=== PATIENT | female | born 1945 | race Caucasian/White ===

== ENCOUNTER → 2016-10-16 | Outpatient (CLI) | payer OTHER, MEDICARE | LOC: BMCIMAGING 08:19 | PROVIDERS: ATTEND Internal Medicine | DX: Z12.31 Encounter for screening mammogram for malignant neoplasm of breast (principal); Z80.3 Family history of malignant neoplasm of breast | CPT/HCPCS: G0202 ==

== ENCOUNTER → 2017-10-25 | Outpatient (CLI) | payer OTHER, MEDICARE | LOC: BMCIMAGING 09:03 | PROVIDERS: ATTEND Internal Medicine | DX: Z12.31 Encounter for screening mammogram for malignant neoplasm of breast (principal); Z80.3 Family history of malignant neoplasm of breast ==

== ENCOUNTER → 2017-11-01 | Outpatient (CLI) | payer OTHER, MEDICARE | LOC: BMCIMAGING 09:35 | PROVIDERS: ATTEND Internal Medicine | DX: R92.0 Mammographic microcalcification found on diagnostic imaging of breast (principal) ==

== ENCOUNTER → 2018-05-05 | Outpatient (CLI) | payer OTHER, MEDICARE | LOC: BMCIMAGING 10:07 | PROVIDERS: ATTEND Internal Medicine | DX: R92.0 Mammographic microcalcification found on diagnostic imaging of breast (principal); Z80.3 Family history of malignant neoplasm of breast ==

== ENCOUNTER → 2018-06-02 | Day surgery (SDC) | payer OTHER, MEDICARE ==
[~2018-06-02] MED LIST: BUPIVACAINE 0.5% 30 ML SDV ONE; LIDOCAINE 1% 300 MG/30 ML SDV ONE; THROMBIN (BOVINE) 5,000 UNIT VIAL TP ONE
== END | disposition home or self-care (01) ==
LOC: FIMAGING 07:15
PROVIDERS: ATTEND Radiology Diagnostic Radiology
PROC: BH01ZZZ Plain Radiography of Left Breast (ICD-10-PCS; principal; 2018-06-02)
PROC: 0HBU3ZX Excision of Left Breast, Percutaneous Approach, Diagnostic (ICD-10-PCS; principal; 2018-06-02)
DX: C50.112 Malignant neoplasm of central portion of left female breast (principal); Z80.3 Family history of malignant neoplasm of breast; Z17.0 Estrogen receptor positive status [ER+]

== ENCOUNTER 2018-07-01 06:22 | Day surgery (SDC) | payer OTHER, MEDICARE ==
[2018-07-01] MEDS ORDERED: ceFAZolin 2 GM/DEXTROSE 100 ML IV ONE (07:11)
[2018-07-01] MEDS ORDERED: LR 1,000 ML IV ONE (07:12)
[2018-07-01] MEDS ORDERED: LIDOCAINE 1% 300 MG/30 ML SDV ONE ×2 (07:32→10:17)
--- NOTE | 2018-07-01 08:04 | POSTANESTH ---
Post Anesthetic Evaluation Cardiovascular Status: Normal, Stable Respiratory Status: Normal, Stable Complications Possibly Related to Anesthesia: None Noted
--- NOTE | 2018-07-01 08:06 | PDANEPAE ---
ANE History of Present Illness 73 yo female with L breast cancer for lumpectomy and SLN biopsy. ANE Past Medical History - Cardiovascular History Hx Hypertension: Yes Hx Arrhythmias: No Hx Chest Pain: No Hx Coronary Artery / Peripheral Vascular Disease: No Hx CHF / Valvular Disease: No Hx Palpitations: No - Pulmonary History Hx COPD: No Hx Asthma/Reactive Airway Disease: No Hx Recent Upper Respiratory Infection: No Hx Oxygen in Use at Home: No Hx Sleep Apnea: No Sleep Apnea Screening Result - Last Documented: Negative - Neurologic History Hx Cerebrovascular Accident: No Hx Seizures: No Hx Dementia: No - Endocrine History Hx Diabetes: No Hypothyroid: No Hyperthyroid: No Obesity: no - Renal History Hx Renal Disorders: No - Liver History Hx Hepatic Disorders: No - Neurological & Psychiatric Hx Hx Neurological and Psychiatric Disorders: Yes Neurological / Psychiatric History Comment: ANXIETY - Cancer History Hx Cancer: Yes Cancer History Comment: L BREAST - Congenital Disorder History Hx Congenital Disorders: No - GI History Hx Gastrointestinal Disorders: Yes Gastrointestinal History Comment: GERD. IBS - Other Health History Other Health History: vitiligo - Chronic Pain History Chronic Pain: No - Surgical History Prior Surgeries: TUBAL LIGATION. R BREAST SURGERY - DUCTAL PAPILOMA ANE Review of Systems Review of Systems: - Exercise capacity METS (RN): 4 METS - Systems Constitutional: Reports: no symptoms Cardiac: Reports: no symptoms Respiratory: Reports: no symptoms ANE Patient History - Allergies Allergies/Adverse Reactions: Sulfa (Sulfonamide Antibiotics) Allergy (Verified 06/22/18 12:14) Hives - Home Medications Home Medications: Aspirin 04/19/09 [Last Taken 1 Week Ago ~06/24/18] Amlodipine Besylate 06/22/18 [Last Taken 07/01/18 06:30] Hyoscyamine Sulfate 06/22/18 [Last Taken Unknown] Lisinopril 06/22/18 [Last Taken 07/01/18 06:30] Omeprazole 06/22/18 [Last Taken 07/01/18 06:30] Tylenol 06/22/18 [Last Taken 07/01/18 06:30] Valium 06/22/18 [Last Taken 07/01/18 06:30] - NPO status NPO Since - Liquids (Date): 07/01/18 NPO Since - Liquids (Time): 05:00 NPO Since - Solids (Date): 07/01/18 NPO Since - Solids (Time): 00:00 - Anes Hx Anes Hx: no prior problems - Smoking Hx Smoking Status: Never smoked - Alcohol Use Alcohol Use: Occasionally (5/week) - Family Anes Hx Family Anes Hx: neg - N/A ANE Labs/Vital Signs - Vital Signs Blood Pressure: 120/77 Heart Rate: 70 Respiratory Rate: 18 O2 Sat (%): 96 Height: 163.83 cm Weight: 70.307 kg ANE Physical Exam - Airway Neck exam: FROM Mallampati Score: Class 2 Mouth exam: normal dental/mouth exam - Pulmonary Pulmonary: clear to auscultation - Cardiovascular Cardiovascular: regular rate and rhythym - ASA Status ASA Status: III ANE Anesthesia Plan Anesthesia Plan: GA w LMA
[2018-07-01] MEDS ORDERED: BUPIVACAINE 0.25% 30 ML SDV ONE (10:17)
[2018-07-01] MEDS ORDERED: EPINEPHrine 1 MG/ML INJ ONE (10:17)
[2018-07-01] MEDS ORDERED: SODIUM BICARBONATE 50 MEQ/50 ML SYR ONE (10:18)
--- NOTE | 2018-07-01 10:28 | PDHPUP ---
History & Physical Update H&P update statement: This history and physical update is based on an assessment of the patient which was completed after admission or registration (within 24 hours), but prior to the surgery/procedure. H&P update: H&P reviewed & patient examined (left breast marked as correct site in pre-op), no change in patient's condition since H&P completed
[2018-07-01] MEDS ORDERED: fentaNYL 100 MCG/2 ML INJ ONE ×2 (11:04→13:35)
[2018-07-01] MEDS ORDERED: LIDOCAINE 2% 5 ML SDV ONE (11:04)
[2018-07-01] MEDS ORDERED: PROPOFOL/EMULSION 500 MG/50 ML BOTTLE IV ONE (11:04)
[2018-07-01] MEDS ORDERED: DEXAMETHASONE 4 MG/ML VIAL ONE (11:04)
[2018-07-01] MEDS ORDERED: PROPOFOL 200 MG/20 ML VIAL ONE (12:09)
[2018-07-01] MEDS ORDERED: AVITENE POWDER 1 GM JAR TP ONE (12:34)
[2018-07-01] MEDS ORDERED: KETOROLAC 30 MG/1 ML SDV ONE (12:42)
[2018-07-01] MEDS ORDERED: ONDANSETRON 4 MG/2 ML VIAL IVP PRN (12:45)
[2018-07-01] MEDS ORDERED: HYDROCODONE/APAP 5/325 TAB PO PRN (12:45)
[2018-07-01] MEDS ORDERED: LR 250 ML IV PRN (12:45)
[2018-07-01] MEDS ORDERED: ALBUTEROL 3 ML DEYVIAL IH PRN (12:45)
[2018-07-01] MEDS ORDERED: NALOXONE HCL 0.4 MG/ML INJ IVP PRN (12:45)
[2018-07-01] MEDS ORDERED: DIAZEPAM 5 MG TAB PO PRN (12:46)
[2018-07-01] MEDS ORDERED: ONDANSETRON 4 MG/2 ML VIAL ONE (13:35)
--- NOTE | 2018-07-01 13:37 | POSTOPPROG ---
Post Op Note Date of Operation: 07/01/18 Surgeon: Pierce Palafox (, FACS) Industrial Maintenance Electrician: Laquita Thornton PAS-3 Anesthesiologist: Jaqueline Leyva DO Anesthesia: LMA Pre-op Diagnosis: left breast cancer Post-op Diagnosis: same Procedure: left PM/SLN bx/immediate adjacent tissue transfer Findings: specimen mammogram confirms residual Ca++ and clip Inf/Abcess present in the surg proc area at time of surgery?: No EBL: 50-100 (50)
[2018-07-01] MEDS: fentaNYL 100 MCG/2 ML INJ IVP PRN ×2 (13:39→14:01)
--- NOTE | 2018-07-01 14:22 | GOP ---
[f rep st] OPERATIVE REPORT DATE OF OPERATION: 07/01/2018 SURGEON: Pierce Palafox MD PUPPET MASTER: MILE Alvarez-3. ANESTHESIA: General by laryngeal mask. ANESTHESIOLOGIST: Jaqueline Medina DO PREOPERATIVE DIAGNOSIS: Left breast carcinoma, status post core needle biopsy. POSTOPERATIVE DIAGNOSIS: Left breast carcinoma, status post core needle biopsy. PROCEDURE PERFORMED: 1. Left partial mastectomy with preoperative mammogram-guided needle localization. 2. [place] lymph node mapping and superficial axillary lymph node dissection. 3. Immediate reconstruction with adjacent tissue transfer. FINDINGS: Solitary nonsentinel lymph node approximately 2 cm submitted for permanent section. Three normal-appearing sentinel nodes submitted for permanent section. Partial mastectomy specimen was bal bmitted for specimen. Mammogram showing the residual calcifications and clip within the specimen. S pecimen was inked for orientation and submitted for permanent section. Gross inspection revealed the hematoma cavity to be closest to the anterior margin. Anterior margin was reexcised and submitted f or permanent section. ESTIMATED BLOOD LOSS: 50 mL. DESCRIPTION OF PROCEDURE: After informed consent was obtained, the patient was brought to the operat ing room and placed under general anesthesia. She had undergone wire-guided localization preoperativ yazan as well as sentinel lymph node injection. Before proceeding, a time-out and identification of th e patient was performed. The Neoprobe (gamma detector) was used to interrogate the axilla and the point of maximum counts was marked on the skin with a marking pen. This area was infiltrated with 0.25% Marcaine, incised transv ersely, and dissection carried through the skin and subcutaneous tissues and superficial axillary fas blanca. The 1st lymph node encountered measured approximately 2 cm, was fatty replaced, and appeared to have elevated counts compared to background. This was excised after dispatching the lymphovascular structures with hemoclips. After removing the node, however, it failed to produce the same counts as it did when it was in vivo, and in fact, the sentinel nodes lay posterior and somewhat deep to it. Dissecting further in the level 1 chain of nodes, the hottest sentinel lymph node registered over 140 0 counts per minute and 2 adjacent smaller nodes were removed along with it that had counts in the 20 0-400 range. After these were detached from the surrounding fibrofatty tissue and hemostasis was sec ured with cautery and hemoclips, the nodes were submitted for permanent section. Turning our attenti on to the breast. The partial mastectomy was performed as follows: Patient had a wire exiting the breast at approximately 4 o'clock position directed medial, cephalad, and deep. The areolar border was marked on skin with a marking pen, infiltrated with 0.25% Marcaine, and incised from approximately 1 o'clock to 6 o'clock position. Dissection was carried out posterio rly and laterally intercepting the wire into the field. The breast tissue around the shaft and tip o f the wire was widely excised down to the deep breast margin and not quite to the tip as the wire tra versed the area of tumor by several centimeters. After this was detached, it was inspected, inked fo r orientation using a margin-marker kit, and submitted for specimen mammogram. It appeared clinicall y that the hematoma was closest to the anterior margin, so while we were waiting for the specimen chance mogram, an additional anterior margin was submitted inking the final anterior margin green. Hemostas is was secured within the cavity using cautery. Hemoclips were used to hillary the edges of the perimet er of the cavity. The subcutaneous tissues were mobilized cephalad and inferiorly for immediate tiss ue transfer for a distance of 2-3 cm in all directions using cautery dissection. After we received t he results of the specimen mammogram and inspected again for hemostasis, Avitene powder was instilled into the cavity. The cephalad and inferior deep breast flaps were approximated with interrupted 3-0 Monocryl suture. Final closure was accomplished with interrupted 3-0 Monocryl suture for the subcut aneous tissues and 4-0 Monocryl suture in a subcuticular fashion for the skin. The axillary incision was inspected. Hemostasis appeared secure, and it was closed in a similar fashion. Topical Mastiso l and Steri-Strips were applied. Patient was returned extubated to the recovery room in satisfactory condition. Needle, sponge, and instrument count were correct. COMPLICATIONS: None. /[id number]/MODL
[2018-07-01 15:06] VITALS: BP 129/72
[2018-07-01] MEDS ORDERED: HYDROCODONE/APAP 5/325 TAB ONE (15:36)
== END 2018-07-01 16:23 | disposition home or self-care (01) ==
LOC: FIMAGING 06:22 → EDSTATUS 11:00 → FIMAGING 16:23
PROVIDERS: ATTEND Surgery
PROC: 0HBU0ZZ Excision of Left Breast, Open Approach (ICD-10-PCS; principal; 2018-07-01 11:00)
DX: C50.512 Malignant neoplasm of lower-outer quadrant of left female breast (principal)
CPT/HCPCS: 19301; 76098; 78195; A9520; J0171; J0690; J1100; J1885; J2405; J2704; J3010

== ENCOUNTER → 2018-08-24 | Outpatient (CLI) | payer OTHER, MEDICARE | LOC: BMCIMAGING 10:07 | PROVIDERS: ATTEND Internal Medicine Hematology & Oncology | DX: Z13.820 Encounter for screening for osteoporosis (principal); M85.89 Other specified disorders of bone density and structure, multiple sites; N95.8 Other specified menopausal and perimenopausal disorders ==

== ENCOUNTER → 2018-09-21 | Outpatient (CLI) | payer OTHER, MEDICARE | LOC: FIMAGING 11:10 | PROVIDERS: ATTEND Internal Medicine Hematology & Oncology | PROC: CG111ZZ Planar Nuclear Medicine Imaging of Parathyroid Glands using Technetium 99m (Tc-99m) (ICD-10-PCS; principal; 2018-09-21) | DX: R79.9 Abnormal finding of blood chemistry, unspecified (principal) | CPT/HCPCS: 78070; A9500; A9516 ==